=== PATIENT | male | born 1970 | race Caucasian/White ===

== ENCOUNTER 2021-07-21 09:44 | Emergency (ER) | payer OTHER ==
[2021-07-21 09:49] VITALS: BP 129/83; PULSE 70; TEMP 98; BMI 25.8
[2021-07-21] MEDS ORDERED: KETOROLAC TROMETHAMINE 30 MG/1 ML VIAL IM ONE (09:58)
[2021-07-21] MEDS ORDERED: METHOCARBAMOL 500 MG TABLET PO ONE (10:02)
[2021-07-21] MEDS ORDERED: KETOROLAC TROMETHAMINE 30 MG/1 ML VIAL ONE (10:15)
[2021-07-21] MEDS ORDERED: METHOCARBAMOL 500 MG TABLET ONE (10:15)
== END 2021-07-21 10:39 | disposition home or self-care (01) ==
LOC: JER 09:44
PROC: 3E023GC Introduction of Other Therapeutic Substance into Muscle, Percutaneous Approach (ICD-10-PCS; principal; 2021-07-21)
DX: M54.5 Low back pain (principal)
CPT/HCPCS: 99284-25